=== PATIENT | female | born 1980 | race Caucasian/White ===

== ENCOUNTER 2017-07-19 16:00 | Inpatient (IN) ==
[2017-07-19 16:52] LABS: Bilirubin,Urine Small (Negative); Blood,Urine Trace (Negative); Clarity,Urine Clear (Clear); Color,Urine Dark Yellow (Yellow); Glucose,Urine (UA) Normal (Normal); Ketones,Urine Trace mg/dL (Negative); Leukocyte Esterase,Urine Negative (Negative); Nitrite,Urine Negative (Negative); Protein,Urine 30 mg/dL (Neg-Trace); Specific Gravity,Urine > 1.030 (1.010-1.025); Urobilinogen,Urine Normal (Normal)
[2017-07-19 16:56] LABS: Bacteria,Urine None Seen per hpf (None-Few); Squamous Epithelial Cell,Urine Many per lpf (None-Few); WBC,Urine 15-30 per hpf (0-3)
[2017-07-19 17:11] LABS: Basophils % 0.3 %; Eosinophils # 0.2 K/mcL (0.0-0.6); Eosinophils % 1.4 %; Hematocrit 40.8 % (35.3-44.9); Hemoglobin 13.6 g/dL (11.5-15.4); Immature Granulocytes % 0.3 % (0-4); Lymphocytes # 1.6 K/mcL (0.6-4.6); Lymphocytes % 10.5 %; Mean Corpuscular HGB Conc 33.3 g/dL (31.6-35.5); Mean Corpuscular Hemoglobin 29.1 pg (28.0-33.3); Mean Corpuscular Volume 87.4 fL (83.0-100.0); Mean Platelet Volume 10.3 fL (9.4-12.4); Monocytes # 1.1 K/mcL (0.0-1.3); Monocytes % 7.6 %; Neutrophils # 11.8 K/mcL (1.6-8.9); Platelet Count 368 K/mcL (140-400); Red Blood Count 4.67 M/mcL (3.82-4.97); Segmented Neutrophils % 79.9 %
[2017-07-19 17:27] LABS: Alanine Aminotransferase 27 Units/L (7-52); Albumin 4.2 g/dL (3.5-5.7); Albumin/Globulin Ratio 1.1 (1.1-2.2); Alkaline Phosphatase 143 Units/L (34-104); Amylase 18 Units/L (29-103); Aspartate Amino Transferase 25 Units/L (13-39); BUN/Creatinine Ratio 17 (6-26); Bilirubin,Direct 0.1 mg/dL (0.0-0.2); Bilirubin,Indirect 0.4 mg/dL (0.0-1.2); Bilirubin,Total 0.5 mg/dL (0.3-1.0); Blood Urea Nitrogen 9 mg/dL (6-20); Calcium 9.7 mg/dL (8.6-10.3); Carbon Dioxide 27 mEq/L (23-29); Chloride 98 mEq/L (98-107); Globulin 3.8 g/dL (2.4-3.5); Glucose 107 mg/dL (70-105); Lipase < 3 Units/L (11-82); Osmolality,Calculated 281 (280-300); Potassium 3.4 mEq/L (3.5-5.1); Sodium 136 mEq/L (136-145); eGFR For African Americans > 60 (> 60); eGFR For Non-African Americans > 60 (> 60)
[2017-07-19] MEDS ORDERED: Ketorolac 15 MG/ML VIAL IVP ONE (17:30)
[2017-07-19] MEDS ORDERED: 0.9 % Sodium Chloride 1,000 ML IVC ONE (17:30)
[2017-07-19] MEDS ORDERED: Ondansetron 4 MG/2 ML VIAL IVP ONE ×2 (17:30→19:16)
--- NOTE | 2017-07-19 17:49 | Emergency Department Note ---
Disposition Clinical Impression: Acute cholecystitis Disposition: Admitted As Inpatient Condition: Fair Abdominal Pain HPI - General Chief Complaint: ED Abdominal Pain Stated Complaint: rt side abd pain Time Seen by Provider: 07/19/17 17:07 Source: patient Mode of arrival: private vehicle Limitations: no limitations Nursing Notes Reviewed: Yes Vital Signs Reviewed: Yes - History of Present Illness HPI Narrative: 36-year-old female presents to the ER with a chief complaint of abdominal pain. Patient states she has had symptoms for the last 5 days. Reports she was previously treated for UTI recently. She completed her course of antibiotics. She reports she has had right-sided abdominal pain for the last 5 days. She is nauseated with some vomiting. No diarrhea or constipation. She reports improvement of her dysuria. No prior history of kidney stones. She is concerned that something might be wrong with her gallbladder or appendix. She reports subjective fevers at home. No other complaints. Pt Subjective Complaint: abdominal pain Onset (ago): day(s) Consistency: constant Location: RUQ, RLQ Pain Severity: moderate Pain Scale: 6 Quality: stabbing Radiation: none Migration to: no migration Improves with: nothing Worsens with: nothing Associated symptoms: Reports: nausea, vomiting, fever (Subjective). Denies: diarrhea, dysuria, hematuria Treatments prior to arrival: none - Related Data Home Medications Medication Instructions Recorded Confirmed No Known Home Drugs 07/20/17 07/20/17 Allergies Allergy/AdvReac Type Severity Reaction Status Date / Time No Known Drug Allergies Allergy See Verified 07/19/17 16:17 Comments All systems ED: reviewed and negative except as stated. Constitutional: Reports: fever (Subjective) Gastrointestinal: Reports: abdominal pain, nausea, vomiting. 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 Psychiatric history: Reports: anxiety, depression - Social History Smoking status: Current every day smoker Alcohol use: Reports: none Drug use: Reports: opiates, marijuana Physical Exam - General Limitations: no limitations General appearance: alert, in no apparent distress - Head Head exam: atraumatic, normocephalic - Eye Eye exam: Present: normal appearance - ENT ENT exam: normal exam - Neck Neck exam: Present: normal inspection - Chest Chest inspection: Present: normal inspection, symmetric chest wall rise - Respiratory Respiratory exam: Present: normal lung sounds bilaterally - Cardiovascular Cardiovascular exam: Present: normal rhythm, tachycardia, normal heart sounds - Abdominal Exam Abdominal exam: Present: soft - Extremities Exam Extremities exam: Present: normal inspection, full ROM - Expanded Upper Extremity Exam Shoulder exam: Present: normal inspection, full ROM Arm exam: Present: normal inspection, full ROM Elbow exam: Present: normal inspection, full ROM Forearm/Wrist exam: Present: normal inspection, full ROM Hand exam: Present: normal inspection, full ROM - Expanded Lower Extremity Exam Hip/Pelvis exam: Present: normal inspection, full ROM Upper leg exam: Present: normal inspection, full ROM Knee exam: Present: normal inspection, full ROM Lower leg exam: Present: normal inspection, full ROM Ankle exam: Present: normal inspection, full ROM Foot/toe exam: Present: normal inspection, full ROM - Skin Skin exam: Present: warm, dry Course Course Narrative: Patient seen and examined. Nonsurgical abdomen on exam. We will get a CT scan of her abdomen and pelvis as well as labs and urinalysis. Patient given IV fluids, Zofran and Toradol. Vital Signs Temperature 97.9 F 07/19/17 16:14 Pulse Rate 132 07/19/17 16:14 Respiratory Rate 18 07/19/17 16:14 Blood Pressure 108/69 07/19/17 16:14 O2 Sat by Pulse Oximetry 100 07/19/17 16:14 Temperature 99.6 F 07/20/17 08:17 Pulse Rate 101 07/20/17 08:17 Respiratory Rate 18 07/20/17 08:17 Blood Pressure 99/66 07/20/17 08:17 O2 Sat by Pulse Oximetry 96 07/20/17 08:17 Oxygen Delivery Oxygen Delivery Room Air Abdominal Pain - MDM Narrative Medical decision making narrative: 36-year-old female presents to the ER due to abdominal pain for 5 days. Labs reviewed showing a leukocytosis. CT scan ordered. She is currently awaiting final results of this. She is signed out to the awake overnight monitor team. - Lab Data Lab results reviewed: Yes I reviewed the patient's lab results. Result diagrams: 07/20/17 05:23 07/20/17 05:23 Lab Results 07/19/17 07/19/17 07/19/17 Range/Units 16:37 16:37 17:02 WBC 14.8 H (4.3-11.1) K/mcL RBC 4.67 (3.82-4.97) M/mcL Hgb 13.6 (11.5-15.4) g/dL Hct 40.8 (35.3-44.9) % MCV 87.4 (83.0-100.0) fL MCH 29.1 (28.0-33.3) pg MCHC 33.3 (31.6-35.5) g/dL RDW 13.0 (11.5-14.5) % Plt Count 368 (140-400) K/mcL MPV 10.3 (9.4-12.4) fL Immature Gran % 0.3 (0-4) % Seg Neutrophils % 79.9 % Lymphocytes % 10.5 % Monocytes % 7.6 % Eosinophils % 1.4 % Basophils % 0.3 % Neutrophils # 11.8 H (1.6-8.9) K/mcL Lymphocytes # 1.6 (0.6-4.6) K/mcL Monocytes # 1.1 (0.0-1.3) K/mcL Eosinophils # 0.2 (0.0-0.6) K/mcL Basophils # 0.0 (0.0-0.2) K/mcL Sodium (136-145) mEq/L Potassium (3.5-5.1) mEq/L Chloride (98-107) mEq/L Carbon Dioxide (23-29) mEq/L BUN (6-20) mg/dL Creatinine (0.60-1.20) mg/dL Est GFR ( Amer) (> 60) Est GFR (Non-Af Amer) (> 60) BUN/Creatinine Ratio (6-26) Glucose (70-105) mg/dL Calculated Osmolality (280-300) Calcium (8.6-10.3) mg/dL Total Bilirubin (0.3-1.0) mg/dL Direct Bilirubin (0.0-0.2) mg/dL Indirect Bilirubin (0.0-1.2) mg/dL AST (13-39) Units/L ALT (7-52) Units/L Alkaline Phosphatase (34-104) Units/L Serum Total Protein (6.4-8.9) g/dL Albumin (3.5-5.7) g/dL Globulin (2.4-3.5) g/dL Albumin/Globulin Ratio (1.1-2.2) Amylase (29-103) Units/L Lipase (11-82) Units/L Urine Color Dark Yellow (Yellow) Urine Clarity Clear (Clear) Urine pH 6.0 (5.0-8.0) pH Units Ur Specific [place] > 1.030 H (1.010-1.025) Urine Protein 30 H (Neg-Trace) mg/dL Urine Glucose (UA) Normal (Normal) mg/dL Urine Ketones Trace H (Negative) mg/dL Urine Blood Trace H (Negative) Urine Nitrite Negative (Negative) Urine Bilirubin Small H (Negative) Urine Urobilinogen Normal (Normal) mg/dL Ur Leukocyte Esterase Negative (Negative) Urine Microscopic RBC 3-5 H (0-3) per hpf Urine Microscopic WBC 15-30 H (0-3) per hpf Ur Squamous Epith Cells Many H (None-Few) per lpf Urine Bacteria None Seen (None-Few) per hpf Ur Culture Indicated? NO (NO) Urine Test Negative (Negative) 07/19/17 Range/Units 17:02 WBC (4.3-11.1) K/mcL RBC (3.82-4.97) M/mcL Hgb (11.5-15.4) g/dL Hct (35.3-44.9) % MCV (83.0-100.0) fL MCH (28.0-33.3) pg MCHC (31.6-35.5) g/dL RDW (11.5-14.5) % Plt Count (140-400) K/mcL MPV (9.4-12.4) fL Immature Gran % (0-4) % Seg Neutrophils % % Lymphocytes % % Monocytes % % Eosinophils % % Basophils % % Neutrophils # (1.6-8.9) K/mcL Lymphocytes # (0.6-4.6) K/mcL Monocytes # (0.0-1.3) K/mcL Eosinophils # (0.0-0.6) K/mcL Basophils # (0.0-0.2) K/mcL Sodium 136 (136-145) mEq/L Potassium 3.4 L (3.5-5.1) mEq/L Chloride 98 (98-107) mEq/L Carbon Dioxide 27 (23-29) mEq/L BUN 9 (6-20) mg/dL Creatinine 0.52 L (0.60-1.20) mg/dL Est GFR ( Amer) > 60 (> 60) Est GFR (Non-Af Amer) > 60 (> 60) BUN/Creatinine Ratio 17 (6-26) Glucose 107 H (70-105) mg/dL Calculated Osmolality 281 (280-300) Calcium 9.7 (8.6-10.3) mg/dL Total Bilirubin 0.5 (0.3-1.0) mg/dL Direct Bilirubin 0.1 (0.0-0.2) mg/dL Indirect Bilirubin 0.4 (0.0-1.2) mg/dL AST 25 (13-39) Units/L ALT 27 (7-52) Units/L Alkaline Phosphatase 143 H (34-104) Units/L Serum Total Protein 8.0 (6.4-8.9) g/dL Albumin 4.2 (3.5-5.7) g/dL Globulin 3.8 H (2.4-3.5) g/dL Albumin/Globulin Ratio 1.1 (1.1-2.2) Amylase 18 L (29-103) Units/L Lipase < 3 L (11-82) Units/L Urine Color (Yellow) Urine Clarity (Clear) Urine pH (5.0-8.0) pH Units Ur Specific [place] (1.010-1.025) Urine Protein (Neg-Trace) mg/dL Urine Glucose (UA) (Normal) mg/dL Urine Ketones (Negative) mg/dL Urine Blood (Negative) Urine Nitrite (Negative) Urine Bilirubin (Negative) Urine Urobilinogen (Normal) mg/dL Ur Leukocyte Esterase (Negative) Urine Microscopic RBC (0-3) per hpf Urine Microscopic WBC (0-3) per hpf Ur Squamous Epith Cells (None-Few) per lpf Urine Bacteria (None-Few) per hpf Ur Culture Indicated? (NO) Urine Test (Negative) Attestation Statement - Attestation Attestation: I examined this patient and my medical decision-making was reviewed with the Resident Physician, Dr. Banks. I agree with the documented findings, disposition and treatment plan as described except to the extent set forth below. Pt is a 36 yo wf, with c/o R sided abd pain x 5 d. Pt recently treated and completed antibx for UTI with resolution of urinary sxs. No prior hx kidney stones. Pt denies any F/C, bowel changes. Pt has been having nausea and occasional vomiting. Pt concerned with GB vx appy. I agree with pt's PE findings as documented. Tachycardic, but remaining vitals stable. Pt received IVF, pain/nausea meds and had labs drawn, UA/preg and CT abd/ pelvis. Pt not preg, and no UTI. Labs with leukocytosis, otherwise wnl. CT pending. Serial abd exams remain unchanged. VSS. Pt signed out to Dr. Saenz and awake overnight monitor team pending CT results and final disposition.
[2017-07-19] MEDS ORDERED: *HR* HYDROmorphone (PF) 1 MG/ML SYRINGE IVP ONE (19:16)
--- NOTE | 2017-07-19 19:59 | Emergency Department Note ---
Disposition Clinical Impression: Acute cholecystitis Disposition: Admitted As Inpatient Condition: Fair Referrals: NONE,PCP [Primary Care Provider] - Forms: ED Satisfaction Letter, Work/School Release Time of Disposition: 20:14 Abdominal Pain HPI - General Chief Complaint: ED Abdominal Pain Stated Complaint: rt side abd pain Time Seen by Provider: 07/19/17 17:07 Source: patient Mode of arrival: private vehicle Nursing Notes Reviewed: Yes Vital Signs Reviewed: Yes - History of Present Illness Pt Subjective Complaint: abdominal pain Location: RUQ, RLQ Pain Severity: moderate Pain Scale: 8 Quality: stabbing Migration to: no migration Improves with: nothing Worsens with: nothing Associated symptoms: Reports: nausea, vomiting, fever (Subjective). Denies: diarrhea, dysuria, hematuria - Related Data Home Medications Medication Instructions Recorded Confirmed Buprenorphine HCl [Subutex] 05/31/15 05/31/15 Previous Rx's Medication Instructions Recorded Nitrofurantoin (BID) [Macrobid] 100 mg PO BID #20 capsule 05/31/15 Phenazopyridine [Pyridium] 100 mg PO TID #9 tablet 05/31/15 Amoxicillin 875 mg PO BID #20 tablet 08/21/15 Cromolyn Sodium Nasal [place] 1 spray NS QID PRN #1 unit 08/21/15 [NasalCrom] Ibuprofen [Motrin] 600 mg PO Q6-8H PRN #30 tab 08/21/15 Promethazine/Dextromethorphan 5 ml PO Q4H PRN #120 ml 08/21/15 [Promethazine-Dm Syrup] Ondansetron ODT [Zofran ODT] 4 mg SL Q6HR PRN #14 tab.rapdis 10/20/15 Allergies Allergy/AdvReac Type Severity Reaction Status Date / Time No Known Drug Allergies Allergy See Verified 07/19/17 16:17 Comments Constitutional: Reports: fever (Subjective) Gastrointestinal: Reports: abdominal pain, nausea, vomiting. 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 Banks and Dr. Dez Osborn's note for history and physical exam, briefly, by with the patient she is tachycardic, an mild distress, with right upper quadrant pain and a positive Batista sign, her CT scan shows findings suggestive of cholecystitis, pericholecystic fluid gallbladder wall edema, and multiple gallstones. General surgeon Dr. Modi he recommended admission to the hospital service nothing by mouth after midnight will consult on the patient. - Consultations Consultation #1: So Dr. Modi, recommend admission to surgery, started the patient on IV Cipro Flagyl, nothing by mouth after midnight Dr. Edmonds accepting physician Vital Signs Temperature 97.9 F 07/19/17 16:14 Pulse Rate 132 07/19/17 16:14 Respiratory Rate 18 07/19/17 16:14 Blood Pressure 108/69 07/19/17 16:14 O2 Sat by Pulse Oximetry 100 07/19/17 16:14 Temperature 97.9 F 07/19/17 16:14 Pulse Rate 104 07/19/17 19:23 Respiratory Rate 18 07/19/17 19:23 Blood Pressure 112/79 07/19/17 19:23 O2 Sat by Pulse Oximetry 99 07/19/17 19:23 Oxygen Delivery Oxygen Delivery Room Air Abdominal Pain - Differential Diagnosis Differential Diagnosis: Likely: abdominal pain non-specific, acute appendicitis , diverticulitis, diverticulosis - Medical Records Medical records reviewed: Yes I reviewed the patient's medical records. - Lab Data Lab results reviewed: Yes I reviewed the patient's lab results. Result diagrams: 07/19/17 17:02 07/19/17 17:02 Lab Results 07/19/17 07/19/17 07/19/17 Range/Units 16:37 16:37 17:02 WBC 14.8 H (4.3-11.1) K/mcL RBC 4.67 (3.82-4.97) M/mcL Hgb 13.6 (11.5-15.4) g/dL Hct 40.8 (35.3-44.9) % MCV 87.4 (83.0-100.0) fL MCH 29.1 (28.0-33.3) pg MCHC 33.3 (31.6-35.5) g/dL RDW 13.0 (11.5-14.5) % Plt Count 368 (140-400) K/mcL MPV 10.3 (9.4-12.4) fL Immature Gran % 0.3 (0-4) % Seg Neutrophils % 79.9 % Lymphocytes % 10.5 % Monocytes % 7.6 % Eosinophils % 1.4 % Basophils % 0.3 % Neutrophils # 11.8 H (1.6-8.9) K/mcL Lymphocytes # 1.6 (0.6-4.6) K/mcL Monocytes # 1.1 (0.0-1.3) K/mcL Eosinophils # 0.2 (0.0-0.6) K/mcL Basophils # 0.0 (0.0-0.2) K/mcL Sodium (136-145) mEq/L Potassium (3.5-5.1) mEq/L Chloride (98-107) mEq/L Carbon Dioxide (23-29) mEq/L BUN (6-20) mg/dL Creatinine (0.60-1.20) mg/dL Est GFR ( Amer) (> 60) Est GFR (Non-Af Amer) (> 60) BUN/Creatinine Ratio (6-26) Glucose (70-105) mg/dL Calculated Osmolality (280-300) Calcium (8.6-10.3) mg/dL Total Bilirubin (0.3-1.0) mg/dL Direct Bilirubin (0.0-0.2) mg/dL Indirect Bilirubin (0.0-1.2) mg/dL AST (13-39) Units/L ALT (7-52) Units/L Alkaline Phosphatase (34-104) Units/L Serum Total Protein (6.4-8.9) g/dL Albumin (3.5-5.7) g/dL Globulin (2.4-3.5) g/dL Albumin/Globulin Ratio (1.1-2.2) Amylase (29-103) Units/L Lipase (11-82) Units/L Urine Color Dark Yellow (Yellow) Urine Clarity Clear (Clear) Urine pH 6.0 (5.0-8.0) pH Units Ur Specific [place] > 1.030 H (1.010-1.025) Urine Protein 30 H (Neg-Trace) mg/dL Urine Glucose (UA) Normal (Normal) mg/dL Urine Ketones Trace H (Negative) mg/dL Urine Blood Trace H (Negative) Urine Nitrite Negative (Negative) Urine Bilirubin Small H (Negative) Urine Urobilinogen Normal (Normal) mg/dL Ur Leukocyte Esterase Negative (Negative) Urine Microscopic RBC 3-5 H (0-3) per hpf Urine Microscopic WBC 15-30 H (0-3) per hpf Ur Squamous Epith Cells Many H (None-Few) per lpf Urine Bacteria None Seen (None-Few) per hpf Ur Culture Indicated? NO (NO) Urine Test Negative (Negative) 07/19/17 Range/Units 17:02 WBC (4.3-11.1) K/mcL RBC (3.82-4.97) M/mcL Hgb (11.5-15.4) g/dL Hct (35.3-44.9) % MCV (83.0-100.0) fL MCH (28.0-33.3) pg MCHC (31.6-35.5) g/dL RDW (11.5-14.5) % Plt Count (140-400) K/mcL MPV (9.4-12.4) fL Immature Gran % (0-4) % Seg Neutrophils % % Lymphocytes % % Monocytes % % Eosinophils % % Basophils % % Neutrophils # (1.6-8.9) K/mcL Lymphocytes # (0.6-4.6) K/mcL Monocytes # (0.0-1.3) K/mcL Eosinophils # (0.0-0.6) K/mcL Basophils # (0.0-0.2) K/mcL Sodium 136 (136-145) mEq/L Potassium 3.4 L (3.5-5.1) mEq/L Chloride 98 (98-107) mEq/L Carbon Dioxide 27 (23-29) mEq/L BUN 9 (6-20) mg/dL Creatinine 0.52 L (0.60-1.20) mg/dL Est GFR ( Amer) > 60 (> 60) Est GFR (Non-Af Amer) > 60 (> 60) BUN/Creatinine Ratio 17 (6-26) Glucose 107 H (70-105) mg/dL Calculated Osmolality 281 (280-300) Calcium 9.7 (8.6-10.3) mg/dL Total Bilirubin 0.5 (0.3-1.0) mg/dL Direct Bilirubin 0.1 (0.0-0.2) mg/dL Indirect Bilirubin 0.4 (0.0-1.2) mg/dL AST 25 (13-39) Units/L ALT 27 (7-52) Units/L Alkaline Phosphatase 143 H (34-104) Units/L Serum Total Protein 8.0 (6.4-8.9) g/dL Albumin 4.2 (3.5-5.7) g/dL Globulin 3.8 H (2.4-3.5) g/dL Albumin/Globulin Ratio 1.1 (1.1-2.2) Amylase 18 L (29-103) Units/L Lipase < 3 L (11-82) Units/L Urine Color (Yellow) Urine Clarity (Clear) Urine pH (5.0-8.0) pH Units Ur Specific [place] (1.010-1.025) Urine Protein (Neg-Trace) mg/dL Urine Glucose (UA) (Normal) mg/dL Urine Ketones (Negative) mg/dL Urine Blood (Negative) Urine Nitrite (Negative) Urine Bilirubin (Negative) Urine Urobilinogen (Normal) mg/dL Ur Leukocyte Esterase (Negative) Urine Microscopic RBC (0-3) per hpf Urine Microscopic WBC (0-3) per hpf Ur Squamous Epith Cells (None-Few) per lpf Urine Bacteria (None-Few) per hpf Ur Culture Indicated? (NO) Urine Test (Negative) - Radiology Data Radiology results reviewed: Yes I reviewed the patient's radiology results. Abdomen/Pelvis CT 07/19/17 17:30 IMPRESSION: Distention of the gallbladder which contains stones and shows moderate wall thickening and adjacent fat stranding. Findings are suggestive of acute cholecystitis. Mild prominence of the intra/extrahepatic biliary ducts. Correlation for biliary obstruction is recommended. D/ / Caitlyn Patino Cha, MD / Caitlyn Patino Cha, MD Interpreting Provider: Caitlyn Patino Cha, MD Attestation Statement - Attestation Attestation: I, Bear Saenz MD, personally evaluated this patient and discussed their management with the resident physician. I reviewed the resident's note and agree with the documented findings, medical decision making, and plan of care. This patient was signed out at shift change from Dr. Banks and Dr. Dez Osborn. Please refer to their notes for complete details of the history and physical examination. Patient presented with right-sided abdominal pain for 5 days with nausea and vomiting. At shift change she is awaiting a CT of the abdomen and pelvis. CT returned and did show gallstones and consistent with acute cholecystitis. On examination patient is a well-developed thin female in no acute distress. She is alert and oriented 3. There is no cyanosis or diaphoresis. Breath sounds are clear and equal bilaterally. Heart regular with a mild tachycardia. Abdomen is soft with moderate diffuse tenderness and severe right upper quadrant tenderness on direct palpation. No CVA tenderness. Bowel sounds present. Dr. Saez discussed with the surgeon on-call, Dr. Modi. He recommended admission by the hospitalist and he will consult on the patient. The hospitalist, Dr. Edmonds, was consulted and accepted admission of the patient.
[2017-07-19] MEDS ORDERED: MetroNIDAZOLE 500 MG/100 ML 500 MG/100 ML BAG IVPB ONE (20:10)
[2017-07-19] MEDS ORDERED: Naloxone 0.4 MG/ML INJ IVP PRN (22:11)
--- NOTE | 2017-07-19 22:21 | Internal Med History&Physical ---
Date of Encounter: 07/19/17 Time of Encounter: 21:00 Assessment and Plan (1) Cholelithiasis Current visit: Yes Status: Acute Patient's abdominal CT shows cholelithiasis. With signs of acute cholecystitis. Lab shows negative bilirubin, liver enzyme, or lipase. - Place patient on nothing by mouth, IV fluid. - IV Cipro and Flagyl. - Surgical consult informed by ER - ABDOMINAL US. Qualifiers: Cholelithiasis location: gallbladder Cholecystitis presence: with cholecystitis Cholecystitis acuity: acute Biliary obstruction: without biliary obstruction Qualified Code(s): K80.00 - Calculus of gallbladder with acute cholecystitis without obstruction (2) DVT prophylaxis Current visit: Yes Status: Acute Heparin subcutaneously (3) Acute cholecystitis Current visit: Yes Status: Acute Management as above Internal Medicine - H&P: HPI Chief complaint: Abdominal pain Admitted From: Home Plans for Post Hospital Care: Home History of present illness: Ms. Guzman is a 36 year old female with no known medical history presented to ER for abdominal pain for 5 days. Patient said she has right flank pain in the beginning and was treated as UTI. Patient's flank pain has improved. However, she developed right upper quadrant pain, constant, sharp, 6-8 out of 10. Patient has nausea and vomited several times, the vomitings are stomach contents , no blood in it. Patient has subjective fever. Patient denies diarrhea, or urination symptoms. In the emergency room, CT abdomen shows: Cholelithiasis and cholecystitis. Patient was started with Cipro and Flagyl, surgical consult was called by ER. Patient was admitted for further management. Past Med Surg Social Fam HX - Past Medical History Medical history: no medical history Psychiatric history: anxiety, depression - Social History Smoking Status: Current every day smoker Smokeless Tobacco Status: No Alcohol use: none Drug use: opiates, marijuana - Family History Mother History Unknown: Yes Internal Medicine - H&P: Meds Buprenorphine HCl [Subutex] 05/31/15 [History] Nitrofurantoin (BID) [Macrobid] 100 mg PO BID #20 capsule 05/31/15 [Rx] Phenazopyridine [Pyridium] 100 mg PO TID #9 tablet 05/31/15 [Rx] Amoxicillin 875 mg PO BID #20 tablet 08/21/15 [Rx] Cromolyn Sodium Nasal [place] [NasalCrom] 1 spray NS QID PRN #1 unit 08/21/15 [Rx] Ibuprofen [Motrin] 600 mg PO Q6-8H PRN #30 tab 08/21/15 [Rx] Promethazine/Dextromethorphan [Promethazine-Dm Syrup] 5 ml PO Q4H PRN #120 ml [Rx] Ondansetron ODT [Zofran ODT] 4 mg SL Q6HR PRN #14 tab.rapdis 10/20/15 [Rx] 3 Allergy/AdvReac Type Severity Reaction Status Date / Time No Known Drug Allergies Allergy See Verified 07/19/17 16:17 Comments All Systems PM: A 10-system review of systems was performed and is negative for pertinent findings except as documented above in the HPI. - Constitutional Vitals: Temp Pulse Resp BP Pulse Ox 97.9 F 118 20 113/74 97 07/19/17 16:14 07/19/17 20:25 07/19/17 21:10 07/19/17 21:10 07/19/17 20:25 General appearance: Present: mild distress, A&O X 3, answers questions appropriately - Head Head exam: Present: atraumatic, normocephalic - Eye Eye exam: Present: PERRL, conjuntiva pink, sclera anicteric Pupils: Present: PERRL - Neck Neck exam general surgery: Present: supple, trachea midline. Absent: lymphadenopathy - Respiratory Respiratory exam: Present: CTAB. Absent: accessory muscle use, rales, rhonchi, wheezes - Cardiovascular Cardiovascular exam: Present: RRR, +S1, +S2. Absent: diastolic murmur, gallop, rubs, systolic murmur - GI/Abdominal GI/Abdominal exam: Present: normal bowel sounds, soft, tenderness (On RUQ with positive Batista's sign), no peritoneal signs. Absent: distended - Extremities Exam Extremities exam: Present: warm, radial pulses palpable and symmetrical. Absent : calf tenderness, cyanotic, pedal edema - Neurological Exam Neurological exam: Present: CN II-XII intact, oriented X3, no focal deficits. Absent: pronater drift, facial droop, speech deficit - Skin Skin exam: Present: dry, intact Internal Med - H&P Results - Labs CBC & Chem 7: 07/19/17 17:02 07/19/17 17:02
[2017-07-19] MEDS: *HR* HYDROmorphone (PF) 1 MG/ML SYRINGE IVP PRN (22:40)
[2017-07-19] MEDS: 0.9 % Sodium Chloride 1,000 ML IVC SCH (22:52)
[2017-07-19] MEDS: *HR* Promethazine 25 MG/ML VIAL IVP PRN (23:48)
[2017-07-20] MEDS: *HR* HYDROcodone/Acet 5/325 mg TABLET PO PRN ×4 (00:49→17:40)
[2017-07-20] MEDS: *HR* HYDROmorphone (PF) 1 MG/ML SYRINGE IVP PRN ×5 (04:22→20:12)
[2017-07-20] MEDS: Ondansetron 4 MG/2 ML VIAL IVP PRN ×2 (04:47→11:55)
[2017-07-20] MEDS: MetroNIDAZOLE 500 MG/100 ML 500 MG/100 ML BAG IVPB SCH ×3 (04:48→20:12)
[2017-07-20 05:51] LABS: Basophils % 0.2 %; Eosinophils # 0.3 K/mcL (0.0-0.6); Eosinophils % 2.7 %; Immature Granulocytes % 0.5 % (0-4); Lymphocytes # 1.3 K/mcL (0.6-4.6); Lymphocytes % 10.7 %; Mean Corpuscular HGB Conc 32.4 g/dL (31.6-35.5); Mean Corpuscular Hemoglobin 28.6 pg (28.0-33.3); Mean Corpuscular Volume 88.3 fL (83.0-100.0); Mean Platelet Volume 10.4 fL (9.4-12.4); Monocytes # 1.1 K/mcL (0.0-1.3); Monocytes % 8.9 %; Neutrophils # 9.2 K/mcL (1.6-8.9); Platelet Count 301 K/mcL (140-400); Red Blood Count 3.85 M/mcL (3.82-4.97); Red Cell Distribution Width 12.9 % (11.5-14.5)
[2017-07-20 06:03] LABS: BUN/Creatinine Ratio 14 (6-26); Blood Urea Nitrogen 5 mg/dL (6-20); Calcium 8.2 mg/dL (8.6-10.3); Carbon Dioxide 24 mEq/L (23-29); Chloride 102 mEq/L (98-107); Glucose 96 mg/dL (70-105); Magnesium 1.8 mg/dL (1.6-2.6); Osmolality,Calculated 279 (280-300); Potassium 2.8 mEq/L (3.5-5.1); Sodium 136 mEq/L (136-145); eGFR For African Americans > 60 (> 60); eGFR For Non-African Americans > 60 (> 60)
[2017-07-20] MEDS: *HR* Heparin 5,000 UNIT/ML VIAL SQ SCH ×2 (06:15→17:22)
[2017-07-20] MEDS: Acetaminophen 325 MG TABLET PO PRN ×2 (07:56→17:41)
[2017-07-20] MEDS: *HR* Promethazine 25 MG/ML VIAL IVP PRN ×3 (07:56→21:08)
--- NOTE | 2017-07-20 09:13 | General Surgery Consult Note ---
<Danyell Jimenez - Last Filed: 07/20/17 12:05> Date of Encounter: 07/20/17 Time of Encounter: 09:11 Assessment and Plan (1) Cholelithiasis Current Visit: Yes Status: Acute 36 y F with presentation of abdominal pain, with imaging demonstrating Cholelithiasis with wall thickening and biliary ductal dilatation seen, suggestive of cholecystitis. -Hepatic panel reviewed. Abdominal U/S, CT report reviewed - IV Cipro and Flagyl -Continue pain management - Plan for surgery tomorrow. -NPO from midnight. -Pre-op labs in AM. Qualifiers: Cholelithiasis location: gallbladder Cholecystitis presence: with cholecystitis Cholecystitis acuity: acute Biliary obstruction: without biliary obstruction Qualified Code(s): K80.00 - Calculus of gallbladder with acute cholecystitis without obstruction (2) DVT prophylaxis Current Visit: Yes Status: Acute Heparin SubQ. History of Present Illness Consult date: 07/20/17 Reason for consult: abdominal pain Requesting physician: Sebas Saez History of present illness: Ms. Guzman is a 36 year old female with no known medical history presented to ER for abdominal pain for 5 days. She endorses right upper quadrant pain, howevers states she cannot pinpoint location of pain at all times. Pain is constant, sharp, 6-8 out of 10 to admitting team and on consultation. Associated symptoms: Patient has nausea and NBNB emesis. Patient denies diarrhea. Pt denies past medical history. Denies opioid dependence. CT abdomen in ED concerning for cholelithiasis and cholecystitis. Patient was started with Cipro and Flagyl, surgical consult was called by ER. Per admitting note, pt was on treatment for UTI prior to admission. Past Med Surg Social Fam HX - Past Medical History Medical history: no medical history Psychiatric history: anxiety, depression - Social History Smoking Status: Current every day smoker Packs per day: less than 1 Smokeless Tobacco Status: No Alcohol use: none Drug use: opiates, marijuana - Family History Mother History Unknown: Yes Medications and Allergies No Known Home Drugs 07/20/17 [History] 3 Allergy/AdvReac Type Severity Reaction Status Date / Time No Known Drug Allergies Allergy See Verified 07/19/17 16:17 Comments Review of Systems All systems PM: As documented above in the HPI. General Surgery Exam Initial Vital Signs Temp Pulse Resp BP Pulse Ox 97.9 F 132 18 108/69 100 07/19/17 16:14 07/19/17 16:14 07/19/17 16:14 07/19/17 16:14 07/19/17 16:14 - General physical appearance moderate pain, other (thin) - Respiratory normal expansion, clear to auscultation, other (shallowed breathing 2/2 to pain ) - Cardiovascular Cardiovascular exam: Present: RRR, no murmurs/rubs/gallops - Abdomen Abdomen general surgery: Present: bowel sounds present, soft, tender (mild tenderness. Negative Batista's sign. (RN in room, reported analgesia administration prior to exam)) - Psychiatric Psychiatric general surgery: Present: oriented to person, oriented to place, oriented to time, speech is normal Exam Initial Vital Signs Temp Pulse Resp BP Pulse Ox 97.9 F 132 18 108/69 100 07/19/17 16:14 07/19/17 16:14 07/19/17 16:14 07/19/17 16:14 07/19/17 16:14 Results - Labs 07/20/17 05:23 07/20/17 05:23 Abnormal lab results WBC 12.0 K/mcL (4.3-11.1) H 07/20/17 05:23 Hgb 11.0 g/dL (11.5-15.4) L D 07/20/17 05:23 Hct 34.0 % (35.3-44.9) L 07/20/17 05:23 Neutrophils # 9.2 K/mcL (1.6-8.9) H 07/20/17 05:23 Potassium 2.8 mEq/L (3.5-5.1) L 07/20/17 05:23 BUN 5 mg/dL (6-20) L 07/20/17 05:23 Creatinine 0.37 mg/dL (0.60-1.20) L 07/20/17 05:23 Calculated Osmolality 279 (280-300) L 07/20/17 05:23 Calcium 8.2 mg/dL (8.6-10.3) L 07/20/17 05:23 Alkaline Phosphatase 143 Units/L (34-104) H 07/19/17 17:02 Globulin 3.8 g/dL (2.4-3.5) H 07/19/17 17:02 Amylase 18 Units/L (29-103) L 07/19/17 17:02 Lipase < 3 Units/L (11-82) L 07/19/17 17:02 Ur Specific [place] > 1.030 (1.010-1.025) H 07/19/17 16:37 Urine Protein 30 mg/dL (Neg-Trace) H 07/19/17 16:37 Urine Ketones Trace mg/dL (Negative) H 07/19/17 16:37 Urine Blood Trace (Negative) H 07/19/17 16:37 Urine Bilirubin Small (Negative) H 07/19/17 16:37 Urine Microscopic RBC 3-5 per hpf (0-3) H 07/19/17 16:37 Urine Microscopic WBC 15-30 per hpf (0-3) H 07/19/17 16:37 Ur Squamous Epith Cells Many per lpf (None-Few) H 07/19/17 16:37 Diabetes panel 07/20/17 Range/Units 05:23 Sodium 136 (136-145) mEq/L Potassium 2.8 L (3.5-5.1) mEq/L Chloride 102 (98-107) mEq/L Carbon Dioxide 24 (23-29) mEq/L BUN 5 L (6-20) mg/dL Creatinine 0.37 L (0.60-1.20) mg/dL Glucose 96 (70-105) mg/dL Calcium 8.2 L (8.6-10.3) mg/dL Calcium panel 07/20/17 Range/Units 05:23 Calcium 8.2 L (8.6-10.3) mg/dL Pituitary panel 07/20/17 Range/Units 05:23 Sodium 136 (136-145) mEq/L Potassium 2.8 L (3.5-5.1) mEq/L Chloride 102 (98-107) mEq/L Carbon Dioxide 24 (23-29) mEq/L BUN 5 L (6-20) mg/dL Creatinine 0.37 L (0.60-1.20) mg/dL Glucose 96 (70-105) mg/dL Calcium 8.2 L (8.6-10.3) mg/dL Adrenal panel 07/20/17 Range/Units 05:23 Sodium 136 (136-145) mEq/L Potassium 2.8 L (3.5-5.1) mEq/L Chloride 102 (98-107) mEq/L Carbon Dioxide 24 (23-29) mEq/L BUN 5 L (6-20) mg/dL Creatinine 0.37 L (0.60-1.20) mg/dL Glucose 96 (70-105) mg/dL Calcium 8.2 L (8.6-10.3) mg/dL All other labs normal. - Imaging CT scan - abdomen: report reviewed Additional studies: EXAMINATION: RIGHT UPPER QUADRANT ULTRASOUND 07/20/2017 9:16 am COMPARISON: None. HISTORY: ORDERING SYSTEM PROVIDED HISTORY: Cholecystitis Additional tech notes: PREP TO ERROL, TRANSPORT AWARE FINDINGS: LIVER: There is mild intrahepatic ductal dilatation BILIARY SYSTEM: Gallstones are seen. Stone is seen in the region the gallbladder neck. Gallbladder wall is thickened at 1.2 cm. There is trace pericholecystic fluid Extrahepatic common duct is dilated at 8 mm. RIGHT KIDNEY: The right kidney is grossly unremarkable without evidence of hydronephrosis. PANCREAS: Small lymph node is seen near the pancreatic head, incidentally noted OTHER: No evidence of right upper quadrant ascites. US/US abdomen limited IMPRESSION: Cholelithiasis with wall thickening and biliary ductal dilatation seen, suggesting superimposed cholecystitis. Given the extrahepatic common duct dilatation, recommend correlation with serum bilirubin Small lymph node near the pancreatic head, likely reactive D/ / Marin Lockett MD / Marin Lockett MD Interpreting Provider: Marin Lockett MD OF THE ABDOMEN AND PELVIS WITHOUT CONTRAST 07/19/2017 7:03 pm TECHNIQUE: CT of the abdomen and pelvis was performed without the administration of intravenous contrast. Multiplanar reformatted images are provided for review. Dose modulation, iterative reconstruction, and/or weight based adjustment of the mA/kV was utilized to reduce the radiation dose to as low as reasonably achievable. COMPARISON: Abdominal radiographs 05/09/2009 HISTORY: ORDERING SYSTEM PROVIDED HISTORY: R sided abd pain Right-sided abdominal pain for 5 days. Initial study. History of tubal ligation FINDINGS: Lower Chest: Clear lung bases. Organs: Noncontrast images of the liver, spleen, pancreas, adrenal glands, and kidneys show no acute abnormality. There are few calcified gallstones within a distended gallbladder, including within its neck. There is at least moderate diffuse wall thickening of the gallbladder and there is adjacent right upper quadrant mesenteric fat stranding. The common duct is mildly prominent measuring up to 7 -8 mm. GI/Bowel: The bowel shows normal caliber and course without suspected wall thickening. The visualized appendix is normal. Moderate amount dense stool is present within the proximal colon. Pelvis: The uterus and urinary bladder are within normal limits. Peritoneum/Retroperitoneum: The aorta is normal in caliber and course. Bones/Soft Tissues: No acute bony abnormality. CT/CT abd pelvis wo no iv no oral IMPRESSION: Distention of the gallbladder which contains stones and shows moderate wall thickening and adjacent fat stranding. Findings are suggestive of acute cholecystitis. Mild prominence of the intra/extrahepatic biliary ducts. Correlation for biliary obstruction is recommended. D/ / Caitlyn Patino Cha, MD / Caitlyn Patino Cha, MD Interpreting Provider: Caitlyn Patino Cha, MD Consult Discharge Plan - Plan Referrals: NONE,PCP [Primary Care Provider] - <Tc Modi - Last Filed: 07/21/17 07:44> Date of Encounter: 07/20/17 Review of Systems All systems PM: A 10-system review of systems was performed and is negative for pertinent findings except as documented above in the HPI. General Surgery Exam Initial Vital Signs Temp Pulse Resp BP Pulse Ox 97.9 F 132 18 108/69 100 07/19/17 16:14 07/19/17 16:14 07/19/17 16:14 07/19/17 16:14 07/19/17 16:14 Exam Initial Vital Signs Temp Pulse Resp BP Pulse Ox 97.9 F 132 18 108/69 100 07/19/17 16:14 07/19/17 16:14 07/19/17 16:14 07/19/17 16:14 07/19/17 16:14 Results - Labs 07/21/17 04:42 07/21/17 04:42 Abnormal lab results RBC 3.61 M/mcL (3.82-4.97) L 07/21/17 04:42 Hgb 10.4 g/dL (11.5-15.4) L 07/21/17 04:42 Hct 32.0 % (35.3-44.9) L 07/21/17 04:42 PT 16.8 Seconds (9.4-12.1) H 07/21/17 04:42 Potassium 2.9 mEq/L (3.5-5.1) L 07/21/17 04:42 BUN 3 mg/dL (6-20) L 07/21/17 04:42 Creatinine 0.34 mg/dL (0.60-1.20) L 07/21/17 04:42 Calcium 7.9 mg/dL (8.6-10.3) L 07/21/17 04:42 Alkaline Phosphatase 143 Units/L (34-104) H 07/19/17 17:02 Globulin 3.8 g/dL (2.4-3.5) H 07/19/17 17:02 Amylase 18 Units/L (29-103) L 07/19/17 17:02 Lipase < 3 Units/L (11-82) L 07/19/17 17:02 Ur Specific [place] > 1.030 (1.010-1.025) H 07/19/17 16:37 Urine Protein 30 mg/dL (Neg-Trace) H 07/19/17 16:37 Urine Ketones Trace mg/dL (Negative) H 07/19/17 16:37 Urine Blood Trace (Negative) H 07/19/17 16:37 Urine Bilirubin Small (Negative) H 07/19/17 16:37 Urine Microscopic RBC 3-5 per hpf (0-3) H 07/19/17 16:37 Urine Microscopic WBC 15-30 per hpf (0-3) H 07/19/17 16:37 Ur Squamous Epith Cells Many per lpf (None-Few) H 07/19/17 16:37 Diabetes panel 07/21/17 Range/Units 04:42 Sodium 137 (136-145) mEq/L Potassium 2.9 L (3.5-5.1) mEq/L Chloride 104 (98-107) mEq/L Carbon Dioxide 27 (23-29) mEq/L BUN 3 L (6-20) mg/dL Creatinine 0.34 L (0.60-1.20) mg/dL Glucose 103 (70-105) mg/dL Calcium 7.9 L (8.6-10.3) mg/dL Calcium panel 07/21/17 Range/Units 04:42 Calcium 7.9 L (8.6-10.3) mg/dL Pituitary panel 07/21/17 Range/Units 04:42 Sodium 137 (136-145) mEq/L Potassium 2.9 L (3.5-5.1) mEq/L Chloride 104 (98-107) mEq/L Carbon Dioxide 27 (23-29) mEq/L BUN 3 L (6-20) mg/dL Creatinine 0.34 L (0.60-1.20) mg/dL Glucose 103 (70-105) mg/dL Calcium 7.9 L (8.6-10.3) mg/dL Adrenal panel 07/21/17 Range/Units 04:42 Sodium 137 (136-145) mEq/L Potassium 2.9 L (3.5-5.1) mEq/L Chloride 104 (98-107) mEq/L Carbon Dioxide 27 (23-29) mEq/L BUN 3 L (6-20) mg/dL Creatinine 0.34 L (0.60-1.20) mg/dL Glucose 103 (70-105) mg/dL Calcium 7.9 L (8.6-10.3) mg/dL All other labs normal. - Attending Attestation I examined this patient and my medical decision-making was reviewed with the Resident Physician. I agree with the documented findings, disposition and treatment plan as described except to the extent set forth below. I reviewed the above assessment and evaluation with the resident and agree with the above plan. Noted right upper abdominal pain with palpation. No masses. Reviewed CT scan images which demonstrate signs of acute cholecysitits. Pain has been present for several days. I agree with a laparoscopic cholecystectomy. Risks and benefits have been discussed with the patient and she agrees with the above plan.
[2017-07-20] MEDS: 0.9 % Sodium Chloride 1,000 ML IVC SCH (11:49)
--- NOTE | 2017-07-20 17:49 | Internal Med Progress Note ---
Date of Encounter: 07/20/17 Time of Encounter: 16:05 - Assessment and plan (1) Nausea Current Visit: Yes Status: Acute Assessment and plan: Patient reports constant nausea. Antiemetics as needed. Continue gentle IV fluid hydration. Patient is on clear liquid diet, will be nothing by mouth after midnight for surgery tomorrow. (2) Acute cholecystitis Current Visit: Yes Status: Acute Assessment and plan: She reports abdominal pain for 5 days with almost constant nausea with a few episodes of vomiting. Initially, she presented with right flank pain and was treated as a UTI. Since that time the flank pain has improved, right upper quadrant pain developed. She describes it as constant and sharp and 8/10. She denies any further UTI symptoms, reports subjective fevers, denies diarrhea. CT abdomen and pelvis shows acute cholecystitis, abdomen ultrasound shows cholelithiasis with biliary duct dilatation, suggesting superimposed cholecystitis. Right upper quadrant is tender to palpation. Surgical consult was placed by the emergency department, she has been seen by surgery today. Cholecystectomy tomorrow. Continue IV pain medication and antiemetics Nothing by mouth after midnight Continue gentle fluid IV hydration. Abdomen/Pelvis CT 07/19/17 17:30 IMPRESSION: Distention of the gallbladder which contains stones and shows moderate wall thickening and adjacent fat stranding. Findings are suggestive of acute cholecystitis. Mild prominence of the intra/extrahepatic biliary ducts. Correlation for biliary obstruction is recommended. D/ / Caitlyn Patino Cha, MD / Caitlyn Patino Cha, MD Interpreting Provider: Caitlyn Patino Cha, MD Abdomen Ultrasound 07/20/17 08:30 IMPRESSION: Cholelithiasis with wall thickening and biliary ductal dilatation seen, suggesting superimposed cholecystitis. Given the extrahepatic common duct dilatation, recommend correlation with serum bilirubin Small lymph node near the pancreatic head, likely reactive D/ / Marin Lockett MD / Marin Lockett MD Interpreting Provider: Marin Lockett MD (3) Cholelithiasis Current Visit: Yes Status: Acute Assessment and plan: Plan as above. Qualifiers: Cholelithiasis location: gallbladder Cholecystitis presence: with cholecystitis Cholecystitis acuity: acute Biliary obstruction: without biliary obstruction Qualified Code(s): K80.00 - Calculus of gallbladder with acute cholecystitis without obstruction (4) DVT prophylaxis Current Visit: Yes Status: Acute Assessment and plan: Heparin subcutaneous daily. - Time Spent With Patient less than 15 minutes - Subjective Interval history: Patient was seen and assessed at bedside at 1605. Mother is at bedside. Patient is drowsy from medication administration. She is arousable and answers questions appropriately. She reports abdominal pain with constant nausea. She denies vomiting or diarrhea. She is aware of surgery in the morning, questions were answered. - Constitutional Vitals: Temp Pulse Resp BP Pulse Ox 99.5 F 80 18 103/67 96 07/20/17 16:42 07/20/17 16:42 07/20/17 16:42 07/20/17 16:42 07/20/17 16:42 General appearance: Present: mild distress, A&O X 3, pleasant, answers questions appropriately - Head Head exam: Present: atraumatic, normal inspection, normocephalic - Eye Eye exam: Present: conjuntiva pink, sclera anicteric - Neck Neck exam general surgery: Present: supple, trachea midline. Absent: lymphadenopathy - Respiratory Respiratory exam: Present: CTAB. Absent: accessory muscle use, rales, rhonchi, wheezes - Cardiovascular Cardiovascular exam: Present: RRR, +S1, +S2. Absent: diastolic murmur, gallop, rubs, systolic murmur - GI/Abdominal GI/Abdominal exam: Present: normal bowel sounds, soft, tenderness. Absent: distended - Extremities Exam Extremities exam: Present: normal capillary refill, normal inspection, warm, radial pulses palpable and symmetrical. Absent: calf tenderness, cyanotic, pedal edema, tenderness - Neurological Exam Neurological exam: Present: alert, oriented X3, no focal deficits. Absent: facial droop, speech deficit - Skin Skin exam: Present: dry, intact, normal color, warm. Absent: rash Internal Medicine: Result - Labs CBC & Chem 7: 07/20/17 05:23 07/20/17 05:23 Labs: Short CBC 07/20/17 Range/Units 05:23 WBC 12.0 H (4.3-11.1) K/mcL Hgb 11.0 L D (11.5-15.4) g/dL Hct 34.0 L (35.3-44.9) % Plt Count 301 (140-400) K/mcL Neutrophils # 9.2 H (1.6-8.9) K/mcL BMP 07/20/17 05:23 Sodium 136 Potassium 2.8 L Chloride 102 Carbon Dioxide 24 BUN 5 L Creatinine 0.37 L Glucose 96 Calcium 8.2 L - Impressions Impressions Abdomen Ultrasound 07/20/17 08:30 IMPRESSION: Cholelithiasis with wall thickening and biliary ductal dilatation seen, suggesting superimposed cholecystitis. Given the extrahepatic common duct dilatation, recommend correlation with serum bilirubin Small lymph node near the pancreatic head, likely reactive D/ / Marin Lockett MD / Marin Lockett MD Interpreting Provider: Marin Lockett MD Consult Discharge Plan - Plan Referrals: NONE,PCP [Primary Care Provider] -
--- NOTE | 2017-07-20 18:44 | Anesthesia Evaluation PreOp ---
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: Denies Any Significant HX Other Medical History: Other (Anxiety Depression) Anesthesia History: No Prior Anesthetic Complications : No Test: Negative Alcohol Use: none Drug use: opiates, marijuana Medications and Allergies No Known Home Drugs 07/20/17 [History] 3 Allergy/AdvReac Type Severity Reaction Status Date / Time No Known Drug Allergies Allergy See Verified 07/19/17 16:17 Comments - Meds/Allergy Pre-op Review Medications Reviewed: Yes Allergies Reviewed: Yes Beta Blockers on Current Med List: No Anesthesia Results - Labs 07/20/17 05:23 07/20/17 05:23 Laboratory Tests 07/19/17 07/20/17 07/20/17 16:37 05:23 05:23 Hgb 11.0 L D Hct 34.0 L Plt Count 301 Sodium 136 Potassium 2.8 L BUN 5 L Creatinine 0.37 L Urine Test Negative Anesthesia Exam O2 Sat Height 1.52 m Weight 47.809 kg Weight 47.809 kg O2 Sat by Pulse Oximetry 96 O2 Sat by Pulse Oximetry 96 O2 Sat by Pulse Oximetry 96 O2 Sat by Pulse Oximetry 99 O2 Sat by Pulse Oximetry 100 O2 Sat by Pulse Oximetry 97 O2 Sat by Pulse Oximetry 99 Vital Signs Temp Pulse Resp BP Pulse Ox 97.9 F 132 18 108/69 100 07/19/17 16:14 07/19/17 16:14 07/19/17 16:14 07/19/17 16:14 07/19/17 16:14 Height: 5'0 Weight: 105 lbs NPO (# of Hours): MN Pain Scale: 0 - HEENT Pupil (Motor): Pupils equal, EOMI Mallampati: II Teeth: Normal Oral Opening: Greater than 3 - MARKETING AND PROMOTIONS MANAGER LOC: Oriented MARKETING AND PROMOTIONS MANAGER Motor: Normal RUE, Normal LUE, Normal RLE, Normal LLE, Normal Face MARKETING AND PROMOTIONS MANAGER Sensory: Normal: RUE, LUE, RLE, LLE, Face - Cardiac Rhythm: Regular Murmur: None JVD: No Carotid Bruit: No - Pulmonary Breath Sounds: bilateral Clear Respiratory Effort: Symmetrical Anesthesia Assess/Plan ASA Score: 2 Modified Lili Scale for Level of Consciousness: Cooperative, oriented, and tranquil Anesthetic Plan: General Monitoring Plan: Standard Monitors Recovery Plan: PACU (Discussed GA, agrees to proceed)
[2017-07-21] MEDS: Acetaminophen 325 MG TABLET PO PRN (00:50)
[2017-07-21] MEDS: *HR* HYDROmorphone (PF) 1 MG/ML SYRINGE IVP PRN ×4 (00:55→21:49)
[2017-07-21] MEDS: MetroNIDAZOLE 500 MG/100 ML 500 MG/100 ML BAG IVPB SCH ×4 (04:44→21:49)
[2017-07-21] MEDS: *HR* Promethazine 25 MG/ML VIAL IVP PRN ×3 (04:44→20:58)
[2017-07-21 05:00] LABS: Basophils % 0.3 %; Eosinophils # 0.4 K/mcL (0.0-0.6); Eosinophils % 3.3 %; Hemoglobin 10.4 g/dL (11.5-15.4); Immature Granulocytes % 0.3 % (0-4); Lymphocytes # 1.5 K/mcL (0.6-4.6); Lymphocytes % 14.2 %; Mean Corpuscular HGB Conc 32.5 g/dL (31.6-35.5); Mean Corpuscular Hemoglobin 28.8 pg (28.0-33.3); Mean Corpuscular Volume 88.6 fL (83.0-100.0); Mean Platelet Volume 10.1 fL (9.4-12.4); Monocytes # 0.9 K/mcL (0.0-1.3); Monocytes % 7.9 %; Platelet Count 291 K/mcL (140-400); Red Blood Count 3.61 M/mcL (3.82-4.97)
[2017-07-21 05:05] LABS: INR 1.5; Prothrombin Time 16.8 Seconds (9.4-12.1)
[2017-07-21] MEDS: *HR* Heparin 5,000 UNIT/ML VIAL SQ SCH ×2 (05:37→19:03)
[2017-07-21 05:40] LABS: BUN/Creatinine Ratio 9 (6-26); Blood Urea Nitrogen 3 mg/dL (6-20); Calcium 7.9 mg/dL (8.6-10.3); Carbon Dioxide 27 mEq/L (23-29); Chloride 104 mEq/L (98-107); Glucose 103 mg/dL (70-105); Osmolality,Calculated 281 (280-300); Potassium 2.9 mEq/L (3.5-5.1); Sodium 137 mEq/L (136-145); eGFR For African Americans > 60 (> 60); eGFR For Non-African Americans > 60 (> 60)
[2017-07-21] MEDS ORDERED: *HR* Propofol 200 MG/20 ML VIAL IVP ONE (15:18)
[2017-07-21] MEDS ORDERED: *HR* Midazolam HCl 2 MG/2 ML VIAL ONE (15:18)
[2017-07-21] MEDS ORDERED: *HR* FentaNYL (PF) 100 MCG/2 ML VIAL ONE (15:18)
[2017-07-21] MEDS ORDERED: *HR* Rocuronium Bromide 50 MG/5 ML VIAL ONE (15:19)
[2017-07-21] MEDS ORDERED: Dexamethasone 4 MG/ML VIAL ONE (15:19)
[2017-07-21] MEDS ORDERED: Lidocaine -MPF 2% 2 ML VIAL ONE (15:19)
[2017-07-21] MEDS ORDERED: Ondansetron 4 MG/2 ML VIAL ONE ×2 (15:19→17:10)
[2017-07-21] MEDS ORDERED: Neostigmine Methylsulfate 3 MG/3 ML SYRINGE ONE ×2 (15:25→16:44)
--- NOTE | 2017-07-21 16:00 | Internal Med Progress Note ---
Date of Encounter: 07/21/17 Time of Encounter: 15:56 - Assessment and plan (1) Acute cholecystitis Current Visit: Yes Status: Acute Assessment and plan: presented with abdominal pain for [address] showed cholelithiasis with wall thickening and CBD dilation concerning for cholecystitis. Alkaline phosphatase minimally elevated, LFTs normal, bilirubin normal, lipase and amylase normal. NPO for lap josé miguel. Cont IV Cipro, Flagyl. General surgery following. (2) Hypokalemia Current Visit: Yes Status: Acute Assessment and plan: K 2.8; likely secondary to extensive GI losses with nausea and vomiting. Magnesium 1.8. Mg and K rider ordered. Monitor repeat BMP. (3) DVT prophylaxis Current Visit: Yes Status: Acute Assessment and plan: heparin - Subjective Interval history: Seen and given a bedside. Patient is new to me, information obtained from chart review and patient report. Laying in bed, appears uncomfortable. C/o ABD pain, nothing makes worse, pain medicine helping a little. No CP or SOB - Constitutional Vitals: Temp Pulse Resp BP Pulse Ox 99.5 F 88 18 99/62 94 07/21/17 13:01 07/21/17 13:01 07/21/17 13:01 07/21/17 13:01 07/21/17 13:01 General appearance: Present: mild distress, A&O X 3, pleasant, answers questions appropriately - Head Head exam: Present: atraumatic, normocephalic - Eye Eye exam: Present: PERRL, conjuntiva pink, sclera anicteric Pupils: Present: PERRL - Neck Neck exam general surgery: Present: supple, trachea midline. Absent: lymphadenopathy - Respiratory Respiratory exam: Present: CTAB. Absent: accessory muscle use, rales, rhonchi, wheezes - Cardiovascular Cardiovascular exam: Present: RRR, +S1, +S2. Absent: diastolic murmur, gallop, rubs, systolic murmur - GI/Abdominal GI/Abdominal exam: Present: normal bowel sounds, soft, no peritoneal signs. Absent: distended, tenderness - Extremities Exam Extremities exam: Present: warm, radial pulses palpable and symmetrical. Absent : calf tenderness, cyanotic, pedal edema - Neurological Exam Neurological exam: Present: CN II-XII intact, oriented X3, no focal deficits. Absent: pronater drift, facial droop, speech deficit - Skin Skin exam: Present: dry, intact Internal Medicine: Result - Labs CBC & Chem 7: 07/21/17 04:42 07/21/17 04:42 Labs: Short CBC 07/21/17 Range/Units 04:42 WBC 10.8 (4.3-11.1) K/mcL Hgb 10.4 L (11.5-15.4) g/dL Hct 32.0 L (35.3-44.9) % Plt Count 291 (140-400) K/mcL Neutrophils # 8.0 (1.6-8.9) K/mcL BMP 07/21/17 04:42 Sodium 137 Potassium 2.9 L Chloride 104 Carbon Dioxide 27 BUN 3 L Creatinine 0.34 L Glucose 103 Calcium 7.9 L - ABG Interpretation ABG results: PT/INR, D-dimer PT 16.8 Seconds (9.4-12.1) H 07/21/17 04:42 Consult Discharge Plan - Plan Referrals: NONE,PCP [Primary Care Provider] -
[2017-07-21] MEDS ORDERED: Magnesium Sulfate 2 GM in D5% in Water 100 ML IVPB ONE (16:01)
[2017-07-21] MEDS ORDERED: CefOXitin 2,000 MG VIAL ONE (16:22)
[2017-07-21] MEDS ORDERED: *HR* HYDROmorphone (PF) 1 MG/ML SYRINGE IVP PRN (16:31)
[2017-07-21] MEDS ORDERED: *HR* Promethazine 25 MG/ML VIAL IVP PRN (16:31)
[2017-07-21] MEDS ORDERED: Ondansetron 4 MG/2 ML VIAL IVP ONE (16:31)
--- NOTE | 2017-07-21 17:10 | Operative Note ---
Date of procedure: 07/21/17 Pre-op diagnosis: Acute cholecystitis Post-op diagnosis: same Procedure: Laparoscopic cholecystectomy Anesthesia: GETA Surgeon: Tc Modi Was there an commercial loan assistant present: Yes Toll Test Desk Worker: Nkechi Solorzano Estimated blood loss (cc): 15 Specimen: gallbladder and contents Condition: stable Disposition: PACU Procedure in Detail: Date of surgery: 07/21/17 After properly identifying the patient, the patient was brought to the operating room and placed in the supine position. After proper IV sedation was achieved followed by general endotracheal intubation, the patient's abdomen was prepped and draped in a normal sterile fashion. A timeout was performed noting the patient's name and type of procedure to be performed. An 11 blade scalpel was used to make a supraumbilical incision down to the level of the rectus fascia. Once the rectus fascia was incised and the abdomen was entered and a 12 mm port was placed through the incision. A laparoscopic camera was placed through the port which showed no injury to the abdominal organs upon entry. A subxiphoid 12 mm port in the right subcostal margin 5 mm port were then placed under direct camera visualization. The right upper quadrant was examined and the gallbladder was noted to be edematous with a thick, firm "rind," consistent with acute cholecystitis. The gallbladder was decompressed with a laparoscopic needle decompression device removing 60 mL of bilious fluid. The gallbladder was then grasped with a laparoscopic non-traumatic grasper and retracted superiorly. The peritoneal covering overlying the gallbladder and infundibulum were carefully dissected away from the gallbladder with Bovie cauterization and blunt dissection. The cystic duct was identified, clipped with laparoscopic clips, and incised with laparoscopic scissors. The cystic artery was likewise identified, clipped with laparoscopic clips, and incised laparoscopic scissors. Dissection with Bovie cautery was used to disset the gallbladder away from the gallbladder fossa and to maintain hemostasis. Once the gallbladder was dissected free it was removed from the abdomen via an Endobag. Reinspection of the right upper quadrant demonstrated maintenance of hemostasis and the right upper quadrant was irrigated with normal saline solution until the effluent was clear. All ports were removed from the abdomen after the abdomen was desufflated. The rectus fascia for the supraumbilical incision was reapproximated with a figure of eight 0 Vicryl suture. The subcutaneous tissue was reapproximated with interrupted 3-0 Vicryl sutures. The epidermal and dermal layers for the remaining incisions were closed with 4-0 Monocryl sutures. Needle, sponge, and instrument counts were correct 2 and the incisions were covered with Steri- Strips and Band-Aids. The patient was aroused from IV sedation, extubated in the operating room without complication, and transported to the recovery room in stable condition.
[2017-07-21] MEDS ORDERED: Ringers Solution, Lactated 1,000 ML ONE (17:39)
--- NOTE | 2017-07-21 17:53 | Anesthesia Evaluation Post Op ---
Date of Encounter: 07/21/17 Time of Encounter: 17:53 - Vital Signs Vital Signs: Vital Signs/O2 Sat, Most Current Temp Pulse Resp BP Pulse Ox 99.5 F 71 16 130/71 94 07/21/17 17:44 07/21/17 17:44 07/21/17 17:44 07/21/17 17:44 07/21/17 17:44 - Lungs Lungs: Clear Ascult./Percussion - Airway Airway: Non-obstructed - Cardiovascular Regular Rate - Mental Status Mental Status: Asleep with brisk response to light stimulation - Pain Pain Scale: 4 Pain Scale used: Numeric (1 - 10) - Nausea Vomiting Nausea Vomiting: Not Present - Hydration Hydration: NPO, Has not voided - Discharge PostOp Status: Transfer Patient to floor
[2017-07-21] MEDS ORDERED: Naloxone 0.4 MG/ML INJ IVP PRN (18:12)
[2017-07-21] MEDS ORDERED: Ondansetron 4 MG/2 ML VIAL IVP PRN (18:12)
[2017-07-21] MEDS ORDERED: Acetaminophen 325 MG TABLET PO PRN (18:12)
[2017-07-21] MEDS: *HR* HYDROcodone/Acet 5/325 mg TABLET PO PRN ×2 (19:28→23:39)
[2017-07-22] MEDS: *HR* HYDROmorphone (PF) 1 MG/ML SYRINGE IVP PRN ×2 (01:59→07:03)
[2017-07-22] MEDS: *HR* HYDROcodone/Acet 5/325 mg TABLET PO PRN (04:09)
[2017-07-22] MEDS: MetroNIDAZOLE 500 MG/100 ML 500 MG/100 ML BAG IVPB SCH ×2 (04:09→12:47)
[2017-07-22] MEDS: *HR* Promethazine 25 MG/ML VIAL IVP PRN (04:57)
[2017-07-22] MEDS: *HR* Heparin 5,000 UNIT/ML VIAL SQ SCH ×2 (05:22→18:20)
[2017-07-22 05:42] LABS: Hematocrit 30.8 % (35.3-44.9); Hemoglobin 10.1 g/dL (11.5-15.4); Mean Corpuscular HGB Conc 32.8 g/dL (31.6-35.5); Mean Corpuscular Hemoglobin 28.5 pg (28.0-33.3); Mean Platelet Volume 10.8 fL (9.4-12.4); Platelet Count 331 K/mcL (140-400); Red Blood Count 3.54 M/mcL (3.82-4.97); Red Cell Distribution Width 13.1 % (11.5-14.5)
[2017-07-22 06:04] LABS: BUN/Creatinine Ratio 12 (6-26); Blood Urea Nitrogen 4 mg/dL (6-20); Calcium 8.2 mg/dL (8.6-10.3); Carbon Dioxide 28 mEq/L (23-29); Chloride 104 mEq/L (98-107); Glucose 151 mg/dL (70-105); Osmolality,Calculated 288 (280-300); Potassium 3.2 mEq/L (3.5-5.1); Sodium 139 mEq/L (136-145); eGFR For African Americans > 60 (> 60); eGFR For Non-African Americans > 60 (> 60)
[2017-07-22] MEDS ORDERED: Acetaminophen IV 1,000 MG/100 ML INFUS..BTL IVPB ONE (08:22)
--- NOTE | 2017-07-22 09:18 | General Surgery Progress Note ---
Addendum entered and electronically signed by Nadia Valdovinos CNP 07/22/17 09: 55: Pt states she is no longer taking suboxone. Will provide acute discomfort management at d/c. Original Note: <Nadia Valdovinos - Last Filed: 07/22/17 09:33> Date of Encounter: 07/22/17 Time of Encounter: 08:00 - Assessment and Plan (1) Acute cholecystitis Current Visit: Yes Status: Acute Date of procedure: 07/21/17 Pre-op diagnosis: Acute cholecystitis Post-op diagnosis: same Procedure: Laparoscopic cholecystectomy Anesthesia: GETA Surgeon: Tc Modi Was there an communications assistant present: Yes Correction Officer Reformatory: Nkechi Solorzano Estimated blood loss (cc): 15 POD #1 as above. Abdominal exam is as expected postoperative. No evidence of acute abdomen noted. Pt is encouraged to get OOB, amb, and use IS to help with presumed gas associated discomfort. Discussed with Cora the nature of acute discomfort control vs her home suboxone use and the challenge this presents. Will add schedule IV toradol and Ofirmev for discomfort management. Plan: Add scheduled toradol Q6H for 24 hours and IV ofirmev x1 dose; continue PRN medication Advance diet as tolerated Continue miralax IS 10x Qh Ambulate in halls at least TID. Out of bed to chair for all meals. Continue Cipro and Flagyl IV while in hospital. OK to d/c from a surgical perspective (this afternoon) when ambulating and tolerating p.o. Will continue ATBX for 4 days after d/c. Ibuprofen and her home suboxone for discomfort management at home. Follow-up in [facility] 2 weeks per d /c plan. Subjective Narrative: Cora reports RUQ pain is not controlled. She is unable to differentiate if her abdominal pain is different or improved from before surgery. She states she has an appetite and is excited about eating breakfast. She is getting out of bed with assistance. She denies fevers, cough, or chest pain. Objective Vital Signs - Last 8 Hours Temp Pulse Resp BP Pulse Ox 07/22/17 08:20 98.8 F 76 16 90/51 94 07/22/17 04:55 130/64 07/22/17 04:51 106/70 07/22/17 03:26 98.7 F 67 14 100/61 96 Intake and Output 07/21/17 07/22/17 07/22/17 23:59 07:59 15:59 Intake Total 100 / 100 Output Total Balance 85 / 85 Intake: IV Fluids 100 / 100 Flagyl Premix 500 MG/100 ML 500 100 / 100 mg In 100 ml @ 100 mls/hr IVPB Q8H [facility] Rx#:[id number] Output: Estimated Blood Loss - General physical appearance no distress, moderate pain (resting in bed with eyes closed) - ENT atraumatic, normocephalic - Neck Neck exam: trachea midline, no venous distension - Respiratory normal expansion, normal respiratory effort, clear to auscultation - Cardiovascular Cardiovascular exam: Present: RRR - Abdomen Abdomen: Present: bowel sounds present, soft, tender (expected postoperative) Abdominal Tenderness: RUQ Hernia: none - Incision Incision: Present: clean and dry, intact - Integumentary no rash, no growths, no abnormal pigmentation - Neurologic CN 2-12 grossly intact, normal coordination - Musculoskeletal normal posture - Psychiatric oriented to time, oriented to person, oriented to place, speech is normal, memory intact - Labs 07/22/17 04:42 07/22/17 04:42 Diabetes panel 07/22/17 Range/Units 04:42 Sodium 139 (136-145) mEq/L Potassium 3.2 L (3.5-5.1) mEq/L Chloride 104 (98-107) mEq/L Carbon Dioxide 28 (23-29) mEq/L BUN 4 L (6-20) mg/dL Creatinine 0.33 L (0.60-1.20) mg/dL Glucose 151 H (70-105) mg/dL Calcium 8.2 L (8.6-10.3) mg/dL Calcium panel 07/22/17 Range/Units 04:42 Calcium 8.2 L (8.6-10.3) mg/dL Pituitary panel 07/22/17 Range/Units 04:42 Sodium 139 (136-145) mEq/L Potassium 3.2 L (3.5-5.1) mEq/L Chloride 104 (98-107) mEq/L Carbon Dioxide 28 (23-29) mEq/L BUN 4 L (6-20) mg/dL Creatinine 0.33 L (0.60-1.20) mg/dL Glucose 151 H (70-105) mg/dL Calcium 8.2 L (8.6-10.3) mg/dL Adrenal panel 07/22/17 Range/Units 04:42 Sodium 139 (136-145) mEq/L Potassium 3.2 L (3.5-5.1) mEq/L Chloride 104 (98-107) mEq/L Carbon Dioxide 28 (23-29) mEq/L BUN 4 L (6-20) mg/dL Creatinine 0.33 L (0.60-1.20) mg/dL Glucose 151 H (70-105) mg/dL Calcium 8.2 L (8.6-10.3) mg/dL - VTE Documentation of Mechanical Device: Intermittent pneumatic compression device Consult Discharge Plan - Plan Instructions: Laparoscopic Cholecystectomy (DC) Additional Instructions: General Surgical Discharge Instructions 1. No pushing, pulling, or lifting greater than 15 lbs for 2-4 weeks (depending upon procedure). 2. You may shower beginning today, but no tub baths, soaking, or swimming for 2 weeks. 3. You may resume driving when you are off narcotics and are safe to react in a car. 4. Take ibuprofen every 8 hours for discomfort. If this does not relieve discomfort, you may take the as needed Percocet. Take narcotics as directed. Do not take more narcotics then directed and do not share your narcotics with any other person. Do not drink alcohol while on narcotics. 5. Take stool softeners (Colace) or a water based laxative (Miralax) while taking narcotics. You may hold for loose stools. 6. Report any fevers greater than 100.5F, increase abdominal discomfort, drainage that looks like pus, increased redness or pain at the surgical site, or any vomiting. 7. Report any pain in the calves, shortness of breath, or rapid heartbeat. 8. Follow-up in the office as directed. 9. If you were prescribed antibiotics, do not stop them without talking to your provider. 10 Do not drink alcohol while taking metronidazole. Refrain from alcohol use for 48 hours after completing metronidazole. Referrals: NONE,PCP [Primary Care Provider] - Nadia Valdovinos, CARPET JACK [Advanced Practice Nurse] - 08/07/17 8:00 am Prescriptions: OxyCODONE/APAP 5/325 [Percocet 5/325 MG] 1 each PO Q6HR PRN 7 Days #28 tablet PRN Reason: Pain Ciprofloxacin [Cipro] 500 mg PO BID 4 Days #8 tablet Ibuprofen 800 mg PO Q8H 30 Days #90 tablet metroNIDAZOLE [Flagyl] 500 mg PO TID 4 Days #12 tablet <Tc Modi - Last Filed: 07/23/17 07:21> Date of Encounter: 07/22/17 Objective Vital Signs - Last 8 Hours Temp Pulse Resp BP Pulse Ox 07/23/17 06:43 97.8 F 73 16 87/53 97 07/22/17 23:34 99.2 F 111 17 131/72 97 Intake and Output 07/22/17 07/22/17 07/23/17 15:59 23:59 07:59 Intake Total 440 / 440 480 / 480 Balance 440 / 440 480 / 480 Intake: IV Fluids 200 / 200 Ofirmev 1,000 mg/100 ml 1,000 100 / 100 mg In 100 ml @ 400 mls/hr IVPB ONCE ONE Rx#:[id number] Flagyl Premix 500 MG/100 ML 500 100 / 100 mg In 100 ml @ 100 mls/hr IVPB Q8H [facility] Rx#:[id number] Oral 240 / 240 480 / 480 Other: Meal Breakfast Dinner Percent of Meal Consumed 50% 25% - Labs 07/22/17 04:42 07/23/17 04:57 Diabetes panel 07/23/17 Range/Units 04:57 Sodium 139 (136-145) mEq/L Potassium 4.2 (3.5-5.1) mEq/L Chloride 110 H (98-107) mEq/L Carbon Dioxide 23 (23-29) mEq/L BUN 7 (6-20) mg/dL Creatinine 0.42 L (0.60-1.20) mg/dL Glucose 91 (70-105) mg/dL Calcium 7.9 L (8.6-10.3) mg/dL Calcium panel 07/23/17 Range/Units 04:57 Calcium 7.9 L (8.6-10.3) mg/dL Pituitary panel 07/23/17 Range/Units 04:57 Sodium 139 (136-145) mEq/L Potassium 4.2 (3.5-5.1) mEq/L Chloride 110 H (98-107) mEq/L Carbon Dioxide 23 (23-29) mEq/L BUN 7 (6-20) mg/dL Creatinine 0.42 L (0.60-1.20) mg/dL Glucose 91 (70-105) mg/dL Calcium 7.9 L (8.6-10.3) mg/dL Adrenal panel 07/23/17 Range/Units 04:57 Sodium 139 (136-145) mEq/L Potassium 4.2 (3.5-5.1) mEq/L Chloride 110 H (98-107) mEq/L Carbon Dioxide 23 (23-29) mEq/L BUN 7 (6-20) mg/dL Creatinine 0.42 L (0.60-1.20) mg/dL Glucose 91 (70-105) mg/dL Calcium 7.9 L (8.6-10.3) mg/dL - Attending Attestation I have personally performed a face to face evaluation on this patient. I have reviewed and agree with the care plan. History and Exam by me shows: I reviewed with the above assessment and evaluation and agree with the above plan.
[2017-07-22] MEDS ORDERED: *HR* HYDROmorphone (PF) 1 MG/ML SYRINGE IVP PRN (09:27)
[2017-07-22] MEDS: Ketorolac 15 MG/ML VIAL IVP SCH ×3 (09:43→18:19)
--- NOTE | 2017-07-22 14:58 | Discharge Summary ---
Date of Encounter: 07/22/17 Time of Encounter: 10:00 - Discharge Diagnosis (1) Acute cholecystitis Priority: Primary Status: Acute Comments: presented with abdominal pain for [address] showed cholelithiasis with wall thickening and CBD dilation concerning for cholecystitis. S/p lap josé miguel on 07/21/[address] Modi. Still with significant pain and poor PO intake post- op. Stop IV Dilaudid, continue PRN oral medicine. Encouraged ambulation. Anticipate discharge 07/23 (2) Hypokalemia Priority: Primary Status: Acute Comments: K 2.8; likely secondary to extensive GI losses with nausea and vomiting. Monitor repeat BMP. K 3.2 on 07/21 (3) DVT prophylaxis Priority: Secondary Status: Acute Comments: lovenox - Discharge Medications Prescriptions: OxyCODONE/APAP 5/325 [Percocet 5/325 MG] 1 each PO Q6HR PRN 7 Days #28 tablet PRN Reason: Pain Ciprofloxacin [Cipro] 500 mg PO BID 4 Days #8 tablet Ibuprofen 800 mg PO Q8H 30 Days #90 tablet metroNIDAZOLE [Flagyl] 500 mg PO TID 4 Days #12 tablet Home Medications: Ciprofloxacin [Cipro] 500 mg PO BID 4 Days #8 tablet 07/22/17 [Rx] Ibuprofen 800 mg PO Q8H 30 Days #90 tablet 07/22/17 [Rx] OxyCODONE/APAP 5/325 [Percocet 5/325 MG] 1 each PO Q6HR PRN 7 Days #28 tablet [Rx] metroNIDAZOLE [Flagyl] 500 mg PO TID 4 Days #12 tablet 07/22/17 [Rx] Allergies/Adverse Reactions: 3 Allergy/AdvReac Type Severity Reaction Status Date / Time No Known Drug Allergies Allergy See Verified 07/19/17 16:17 Comments Procedures/tests Complete & Pending: Procedures Performed prior 72 hours Category Date Time Status US abdomen limited [US] Routine Exams 07/20/17 08:30 Completed Date of admission: 07/19/17 22:11 Primary care physician: PCP NONE Discharging clinician: Tara Medina Anticipated date of discharge: 07/22/17 - Patient Status Disposition: Home, Self-Care Condition: Fair - Discharge Instructions Instructions: Laparoscopic Cholecystectomy (DC) Follow Up With: Nadia Valdovinos CNP [Advanced Practice Nurse] - 08/07/17 8:00 am NONE,PCP [Primary Care Provider] - Additional Instructions: General Surgical Discharge Instructions 1. No pushing, pulling, or lifting greater than 15 lbs for 2-4 weeks (depending upon procedure). 2. You may shower beginning today, but no tub baths, soaking, or swimming for 2 weeks. 3. You may resume driving when you are off narcotics and are safe to react in a car. 4. Take ibuprofen every 8 hours for discomfort. If this does not relieve discomfort, you may take the as needed Percocet. Take narcotics as directed. Do not take more narcotics then directed and do not share your narcotics with any other person. Do not drink alcohol while on narcotics. 5. Take stool softeners (Colace) or a water based laxative (Miralax) while taking narcotics. You may hold for loose stools. 6. Report any fevers greater than 100.5F, increase abdominal discomfort, drainage that looks like pus, increased redness or pain at the surgical site, or any vomiting. 7. Report any pain in the calves, shortness of breath, or rapid heartbeat. 8. Follow-up in the office as directed. 9. If you were prescribed antibiotics, do not stop them without talking to your provider. 10 Do not drink alcohol while taking metronidazole. Refrain from alcohol use for 48 hours after completing metronidazole. Interval History: Seen and examined bedside. Patient still with significant abdominal pain and little oral intake. Strongly encouraging ambulation. States she does not have a PCP at this time therefore no follow-up. She is agreeable to stay overnight, stop IV pain medicine, increase ambulation and monitor by mouth intake. We will likely discharge 07/23 Hospital course: Ms. Guzman is a 36 year old female - Time Spent with Patient Total time spent providing and/or coordinating discharge services: - Constitutional Vitals: Temp Pulse Resp BP Pulse Ox 98.0 F 75 16 89/56 95 07/22/17 12:08 07/22/17 12:08 07/22/17 12:08 07/22/17 12:08 07/22/17 12:08 General appearance: Present: mild distress, A&O X 3, pleasant, answers questions appropriately - Head Head exam: Present: atraumatic, normocephalic - Eye Eye exam: Present: PERRL, conjuntiva pink, sclera anicteric Pupils: Present: PERRL - Neck Neck exam general surgery: Present: supple, trachea midline. Absent: lymphadenopathy - Respiratory Respiratory exam: Present: CTAB. Absent: accessory muscle use, rales, rhonchi, wheezes - Cardiovascular Cardiovascular exam: Present: RRR, +S1, +S2. Absent: diastolic murmur, gallop, rubs, systolic murmur - GI/Abdominal GI/Abdominal exam: Present: normal bowel sounds, soft, tenderness, no peritoneal signs. Absent: distended - Extremities Exam Extremities exam: Present: warm, radial pulses palpable and symmetrical. Absent : calf tenderness, cyanotic, pedal edema - Neurological Exam Neurological exam: Present: CN II-XII intact, oriented X3, no focal deficits. Absent: pronater drift, facial droop, speech deficit - Skin Skin exam: Present: dry, intact - VTE Documentation of Mechanical Device: Intermittent pneumatic compression device
[2017-07-22] MEDS: *HR* OxyCODONE/APAP 7.5/325 TABLET PO PRN ×2 (15:50→20:20)
[2017-07-23] MEDS ORDERED: 0.9 % Sodium Chloride 500 ML IVC ONE (00:20)
[2017-07-23] MEDS: *HR* OxyCODONE/APAP 7.5/325 TABLET PO PRN ×3 (00:23→09:02)
[2017-07-23] MEDS: *HR* Heparin 5,000 UNIT/ML VIAL SQ SCH (05:00)
[2017-07-23 06:04] LABS: BUN/Creatinine Ratio 17 (6-26); Blood Urea Nitrogen 7 mg/dL (6-20); Calcium 7.9 mg/dL (8.6-10.3); Carbon Dioxide 23 mEq/L (23-29); Chloride 110 mEq/L (98-107); Glucose 91 mg/dL (70-105); Osmolality,Calculated 286 (280-300); Potassium 4.2 mEq/L (3.5-5.1); Sodium 139 mEq/L (136-145); eGFR For African Americans > 60 (> 60); eGFR For Non-African Americans > 60 (> 60)
[2017-07-23 06:46] VITALS: BP 87/53
[2017-07-23 09:19] LABS: Hematocrit 33.9 % (35.3-44.9); Hemoglobin 10.7 g/dL (11.5-15.4)
--- NOTE | 2017-07-23 10:05 | Discharge Summary ---
Date of Encounter: 07/23/17 Time of Encounter: 10:00 - Discharge Diagnosis (1) Acute cholecystitis Priority: Primary Status: Acute Comments: presented with abdominal pain for [address] showed cholelithiasis with wall thickening and CBD dilation concerning for cholecystitis. S/p lap josé miguel on 07/21/[address] Modi. Hospitalization prolonged due to uncontrolled postop pain and inadequate PO intake. Pain controlled on oral pain medicine at time of discharge, tolerating regular diet. Continue Cipro, Flagyl for 4 days postop per general surgery recommendations. Follow-up with general surgery in 2 weeks (2) Hypokalemia Priority: Primary Status: Resolved Comments: K 2.8; likely secondary to extensive GI losses with nausea and vomiting. K normalized with replacement. K 4.2 at discharge. Recommend establishing care with PCP and follow-up CMP within 1 week. (3) Constipation Priority: Primary Status: Acute Comments: Postoperatively. Abdominal exam benign, bowel sounds active, + flatus. Encouraged adequate water intake, ambulation. PRN miralax at discharge Qualifiers: Constipation type: unspecified constipation type Qualified Code(s): K59.00 - Constipation, unspecified (4) Acute blood loss as cause of postoperative anemia Priority: Primary Status: Acute Comments: Suspected. Hgb 13.6 on arrival and dropped to 10.7 postoperatively. No active bleeding. Hemodynamically stable. Recommend establishing care with PCP and repeat CBC within 1-2 weeks. - Discharge Medications Prescriptions: OxyCODONE/APAP 5/325 [Percocet 5/325 MG] 1 each PO Q6HR PRN 7 Days #28 tablet PRN Reason: Pain Ciprofloxacin [Cipro] 500 mg PO BID 4 Days #8 tablet Ibuprofen 800 mg PO Q8H 30 Days #90 tablet metroNIDAZOLE [Flagyl] 500 mg PO TID 4 Days #12 tablet Polyethylene Glycol 3350 [MiraLAX] 17 gm PO DAILY PRN #30 powd.pack PRN Reason: Constipation Home Medications: Ciprofloxacin [Cipro] 500 mg PO BID 4 Days #8 tablet 07/22/17 [Rx] Ibuprofen 800 mg PO Q8H 30 Days #90 tablet 07/22/17 [Rx] OxyCODONE/APAP 5/325 [Percocet 5/325 MG] 1 each PO Q6HR PRN 7 Days #28 tablet [Rx] metroNIDAZOLE [Flagyl] 500 mg PO TID 4 Days #12 tablet 07/22/17 [Rx] Polyethylene Glycol 3350 [MiraLAX] 17 gm PO DAILY PRN #30 powd.pack 07/23/17 [Rx ] Allergies/Adverse Reactions: 3 Allergy/AdvReac Type Severity Reaction Status Date / Time No Known Drug Allergies Allergy See Verified 07/19/17 16:17 Comments Date of admission: 07/19/17 22:11 Primary care physician: PCP NONE Discharging clinician: Tara Medina Anticipated date of discharge: 07/23/17 - Patient Status Disposition: Home, Self-Care Condition: Good Functional capacity at discharge: independent ambulation Overall status at discharge: patient is back to baseline - Discharge Instructions Instructions: Laparoscopic Cholecystectomy (DC), Polyethylene Glycol 3350 (By mouth), Ciprofloxacin (By mouth), Metronidazole (By mouth) Follow Up With: Nadia Valdovinos FORM PRESS OPERATOR [Advanced Practice Nurse] - 08/07/17 8:00 am NONE,PCP [Primary Care Provider] - Additional Instructions: General Surgical Discharge Instructions 1. No pushing, pulling, or lifting greater than 15 lbs for 2-4 weeks (depending upon procedure). 2. You may shower beginning today, but no tub baths, soaking, or swimming for 2 weeks. 3. You may resume driving when you are off narcotics and are safe to react in a car. 4. Take ibuprofen every 8 hours for discomfort. If this does not relieve discomfort, you may take the as needed Percocet. Take narcotics as directed. Do not take more narcotics then directed and do not share your narcotics with any other person. Do not drink alcohol while on narcotics. 5. Take stool softeners (Colace) or a water based laxative (Miralax) while taking narcotics. You may hold for loose stools. 6. Report any fevers greater than 100.5F, increase abdominal discomfort, drainage that looks like pus, increased redness or pain at the surgical site, or any vomiting. 7. Report any pain in the calves, shortness of breath, or rapid heartbeat. 8. Follow-up in the office as directed. 9. If you were prescribed antibiotics, do not stop them without talking to your provider. 10. Do not drink alcohol while taking metronidazole. Refrain from alcohol use for 48 hours after completing metronidazole. 11. Please call [phone] to establish care with a primary care physician. It is recommended that you have a repeat CBC and CMP within 1-2 weeks. - Diet and Activity Activity: increase activity as tolerated Diet: advance to your usual diet Interval History: Seen and examined bedside. Patient says she feels much better today and would like to discharge home. Tolerating regular diet and pain controlled without IV pain medicine. She has mild abdominal discomfort which she thinks is secondary to constipation. Did not want to stay inpatient until she had BM, says she will be fine to go home. Encouraged adequate oral intake, ambulation and use of MiraLAX as needed. Hospital course: See assessment and plan for hospital course - Time Spent with Patient Total time spent providing and/or coordinating discharge services: - Constitutional Vitals: Temp Pulse Resp BP Pulse Ox 97.8 F 73 16 87/53 97 07/23/17 06:43 07/23/17 06:43 07/23/17 06:43 07/23/17 06:43 07/23/17 06:43 General appearance: Present: mild distress, A&O X 3, pleasant, answers questions appropriately - VTE Documentation of Mechanical Device: Intermittent pneumatic compression device
== END 2017-07-23 11:35 | disposition home or self-care (01) | DRG 263 ==
LOC: EMEROO 16:00 → 3BNU 16:00
PROVIDERS: ADMIT Pediatrics; ATTEND Registered Nurse